=== PATIENT | female | born 1980 | race Caucasian/White ===

== ENCOUNTER 2016-07-05 18:52 | Emergency (ER) | payer SELFPAY ==
[~2016-07-05] VITALS: Ht 167.6 cm; Wt 86.0 kg
[~2016-07-05 18:52] MED LIST: ALPR0.5T99 PO; AMIT10 PO; ASAC800T PO; DICY1TAB26 PO; HYDR-3535 PO; PANT20 PO; PRED20 PO; SEASONIQUE
[2016-07-05 19:03] VITALS: BP 133/90; PULSE 104; RESP 17; TEMP 99.5; O2SAT 98
[2016-07-05] MEDS ORDERED: ASAC800T PO (19:42)
[2016-07-05] MEDS ORDERED: PANT20 PO (19:42)
[2016-07-05] MEDS ORDERED: AMIT1TAB79 PO (19:42)
[2016-07-05] MEDS ORDERED: HYDR-3535 PO (19:42)
[2016-07-05] MEDS ORDERED: ALPR.5 PO (19:42)
[2016-07-05] MEDS ORDERED: SODIUM CHLOR 0.9% 1000 ML INJ 1,000 ML IV SCH ×2 (19:44→22:15)
--- NOTE | 2016-07-05 19:44 | PD ---
HPI Chief Complaint: Abdominal Pain Time Seen by Provider: 19:34 Travel History International Travel<30 days: No Contact w/Intl Traveler<30days: No Traveled to known affect area: No History of Present Illness HPI The patient is a 35-year-old female with a history of Crohn's disease who complains of nausea, vomiting, diarrhea, bright red blood in her stool and fever for 5 days. She has pain on the left upper and lower quadrants, primarily in the left upper quadrant. She states this is her typical exacerbation of Crohn's disease for which she usually gets fluids, Dilaudid and Zofran. Dr. Alexander is currently her health services manager and Dr. Keturah Lambert is her primary care physician. PFSH Past Medical History Anemia: Yes Blood Disorders: No Anxiety: Yes Cancer: No Cardiovascular Problems: Yes Endocrine: No Gastrointestinal Disorders: Yes (CROHN'S DISEASE) GERD: Yes Genitourinary: No Immune Disorder: No Implanted Vascular Access Dvce: No Neurologic: No Psychiatric: No Respiratory: No Immunizations Current: Yes ?: Not LMP: ON [place] DOES NOT GET THEM : 0 Para: 0 Miscarriage: 0 : 0 Past Surgical History Abdominal Surgery: Yes (cholecystectomy) Cholecystectomy: Yes (05/2010) Social History Alcohol Use: No Tobacco Use: No Substance Use: No Allergies-Medications (Allergen,Severity, Reaction): Coded Allergies: Sulfa (Verified Allergy, Severe, THROAT SWELLS, 07/05/16) Reported Meds & Prescriptions Reported Meds & Active Scripts Active Reported Lortab (Hydrocodone-Acetaminophen) 10-325 Mg Tab 1 Tab PO Q6H PRN Protonix (Pantoprazole Sodium) 20 Mg Tab 20 Mg PO DAILY Asacol HD (Mesalamine) 800 Mg Tab 800 Mg PO TID Swallow whole. Take on an empty stomach. Elavil (Amitriptyline HCl) 25 Mg Tab 10 Mg PO HS Xanax (Alprazolam) 0.5 Mg Tab 0.5 Mg PO Q8H PRN [seasonique] control Review of Systems Except as stated in HPI: all other systems reviewed are Neg Physical Exam Narrative GENERAL: The patient appears moderately dehydrated in moderate apparent distress with her abdominal discomfort. Her vital signs show blood pressure 133 /90 with heart rate of 104 but otherwise normal. The temperature is 99.5. SKIN: Warm and dry. HEAD: Atraumatic. Normocephalic. EYES: Pupils equal and round. No scleral icterus. No injection or drainage. ENT: No nasal bleeding or discharge. Mucous membranes pink and moist. NECK: Trachea midline. No JVD. CARDIOVASCULAR: Regular rate and rhythm. No murmur appreciated. RESPIRATORY: No accessory muscle use. Clear to auscultation. Breath sounds equal bilaterally. GASTROINTESTINAL: Abdomen soft, with tenderness in the left upper and left middle quadrant to direct palpation, nondistended. Hepatic and splenic margins not palpable. No guarding or rebound is present. MUSCULOSKELETAL: No obvious deformities. No clubbing. No cyanosis. No edema. NEUROLOGICAL: Awake and alert. No obvious cranial nerve deficits. Motor grossly within normal limits. Normal speech. PSYCHIATRIC: Appropriate mood and affect; insight and judgment normal. RECTAL EXAM: Only a small amount of mucousy material was recovered from the rectum and this was quite negative. Data Data Last Documented VS Vital Signs Date Time Temp Pulse Resp B/P Pulse Ox O2 Delivery O2 Flow Rate FiO2 07/05/16 21:38 91 18 114/64 99 Room Air 07/05/16 19:03 99.5 Orders Complete Blood Count With Diff (07/05/16 19:44) Comprehensive Metabolic Panel (07/05/16 19:44) Lipase (07/05/16 19:44) Urinalysis - C+S If Indicated (07/05/16 19:44) Iv Access Insert/Monitor (07/05/16 19:44) Ecg Monitoring (07/05/16 19:44) Oximetry (07/05/16 19:44) Ondansetron Inj (Zofran Inj) (07/05/16 19:45) Sodium Chlor 0.9% 1000 Ml Inj (Ns 1000 M (07/05/16 19:44) Sodium Chloride 0.9% Flush (Ns Flush) (07/05/16 19:45) Hydromorphone Pf Inj (Dilaudid Pf Inj) (07/05/16 19:45) Ct Abd/Pel W Iv Contrast(Rout) (07/05/16 20:18) Hydromorphone Pf Inj (Dilaudid Pf Inj) (07/05/16 21:15) Ondansetron Inj (Zofran Inj) (07/05/16 21:15) Iohexol 350 Inj (Omnipaque 350 Inj) (07/05/16 21:40) Ondansetron Inj (Zofran Inj) (07/05/16 22:15) Hydromorphone Pf Inj (Dilaudid Pf Inj) (07/05/16 22:15) Labs Laboratory Tests Test 07/05/16 19:55 White Blood Count 12.1 TH/MM3 Red Blood Count 4.59 MIL/MM3 Hemoglobin 12.6 GM/DL Hematocrit 37.5 % Mean Corpuscular Volume 81.6 FL Mean Corpuscular Hemoglobin 27.3 PG Mean Corpuscular Hemoglobin 33.5 % Concent Red Cell Distribution Width 15.4 % Platelet Count 489 TH/MM3 Mean Platelet Volume 9.1 FL Neutrophils (%) (Auto) 70.5 % Lymphocytes (%) (Auto) 24.2 % Monocytes (%) (Auto) 2.7 % Eosinophils (%) (Auto) 0.7 % Basophils (%) (Auto) 1.9 % Neutrophils # (Auto) 8.6 TH/MM3 Lymphocytes # (Auto) 2.9 TH/MM3 Monocytes # (Auto) 0.3 TH/MM3 Eosinophils # (Auto) 0.1 TH/MM3 Basophils # (Auto) 0.2 TH/MM3 CBC Comment DIFF FINAL Differential Comment Sodium Level 140 MEQ/L Potassium Level 3.8 MEQ/L Chloride Level 107 MEQ/L Carbon Dioxide Level 22.6 MEQ/L Anion Gap 10 MEQ/L Blood Urea Nitrogen 19 MG/DL Creatinine 0.81 MG/DL Estimat Glomerular Filtration 80 ML/MIN Rate Random Glucose 81 MG/DL Calcium Level 9.2 MG/DL Total Bilirubin 0.4 MG/DL Aspartate Amino Transf 11 U/L (AST/SGOT) Alanine Aminotransferase 13 U/L (ALT/SGPT) Alkaline Phosphatase 86 U/L Total Protein 8.2 GM/DL Albumin 3.8 GM/DL Lipase 128 U/L MDM Medical Decision Making Medical Screen Exam Complete: Yes Emergency Medical Condition: Yes Medical Record Reviewed: Yes Interpretation(s) The CT abdomen/pelvis shows a probable bone island in the left ischium which was present on a 2009 study and is otherwise unremarkable. The CBC shows a white count of 12,100 with a platelet count of ordered and 89,000 but is otherwise normal. The complete metabolic profile shows a BUN of 19 and GFR of 80 but is otherwise normal. Lipase is normal. Differential Diagnosis Acute exacerbation of Crohn's disease, viral gastroenteritis, bacterial enteritis, colitis Narrative Course The patient appears to have a mild exacerbation of Crohn's disease. She was offered admission but she declines, she wants to try it at home. The blood work is rather unremarkable as is the CT abdomen/pelvis. The patient also has evidence clinically and by laboratory, BUN elevation, of mild dehydration. She has not been given 2 L of saline. Plan: The patient will be given Zofran to take at home, 8 mg 3 times daily. Diagnosis Primary Impression: Exacerbation of Crohn's disease Additional Impression: Mild dehydration Additional Instructions: Take the Zofran regularly so that she can hydrate herself. There is evidence both clinically and by laboratory that you are dehydrated. Med/Other Pt SpecificInfo: Prescription(s) given Scripts Ondansetron (Zofran)8 Mg Tab8 Mg PO TID #30 TAB Ref 0 Prov:Bruno Cowan MD 07/05/16 Disposition: 01 DISCHARGE HOME Condition: Stable Bruno Cowan MD Jul 05, 2016 19:44
[2016-07-05] MEDS ORDERED: SODIUM CHLORIDE 0.9% FLUSH 5 ML FLUSH IVF PRN (19:45)
[2016-07-05] MEDS ORDERED: ONDANSETRON HCL 4 MG/2 ML VIAL IVP ONE (19:45)
[2016-07-05] MEDS ORDERED: HYDROmorphone HCL PF 1 MG/ML VIAL IVS ONE (19:45)
[2016-07-05 20:00] VITALS: RESP 18; O2SAT 97
[2016-07-05 20:10] LABS: AUTOMATED NEUTROPHIL # 8.6 TH/MM3 (1.8-7.7); BASOPHIL # 0.2 TH/MM3 (0-0.2); BASOPHIL % 1.9 % (0.0-2.0); EOSINOPHIL # 0.1 TH/MM3 (0-0.4); EOSINOPHIL % 0.7 % (0.0-4.0); HEMATOCRIT 37.5 % (35.0-46.0); HEMO FLAGS DIFF FINAL; LYMPH % 24.2 % (9.0-44.0); LYMPHOCYTE # 2.9 TH/MM3 (1.0-4.8); MEAN CELL VOLUME 81.6 FL (80.0-100.0); MEAN CORPUSCULAR HEMOGLOBIN 27.3 PG (27.0-34.0); MEAN CORPUSCULAR HGB CONC 33.5 % (32.0-36.0); MONO % 2.7 % (0.0-8.0); NEUT % 70.5 % (16.0-70.0); PLATELET COUNT 489 TH/MM3 (150-450); RED BLOOD COUNT 4.59 MIL/MM3 (4.00-5.30); RED CELL DISTRIBUTION WIDTH 15.4 % (11.6-17.2); WHITE BLOOD COUNT 12.1 TH/MM3 (4.0-11.0)
[2016-07-05 20:18] LABS: CHLORIDE 107 MEQ/L (98-107); POTASSIUM 3.8 MEQ/L (3.5-5.1); SODIUM (NA) 140 MEQ/L (136-145)
[2016-07-05 20:22] LABS: ANION GAP 10 MEQ/L (5-15); BICARBONATE 22.6 MEQ/L (21.0-32.0); BLOOD UREA NITROGEN 19 MG/DL (7-18)
[2016-07-05 20:25] LABS: ALT (GPT) 13 U/L (10-53); AST (GOT) 11 U/L (15-37); GLOMERULAR FILTRATION RATE 80 ML/MIN (>89)
[2016-07-05 20:26] LABS: TOTAL BILIRUBIN ADULT 0.4 MG/DL (0.2-1.0)
[2016-07-05 20:28] LABS: ALKALINE PHOSPHATASE 86 U/L (45-117)
[2016-07-05] MEDS ORDERED: ONDANSETRON HCL 4 MG/2 ML VIAL IV ONE ×2 (21:15→22:15)
[2016-07-05] MEDS ORDERED: HYDROmorphone HCL PF 1 MG/ML VIAL IVP ONE ×2 (21:15→22:15)
--- NOTE | 2016-07-05 21:20 | RADHPO ---
EXAM DATE/TIME: 07/05/2016 20:46 [facility] COMPARISON: CT ABDOMEN & PELVIS W CONTRAST, February 03, 2016, 23:26. INDICATIONS : Left sided abdominal pain with nausea, vomiting, and diarrhia for five days. IV CONTRAST: 97 cc Omnipaque 350 (iohexol) IV ORAL CONTRAST: No oral contrast ingested. RADIATION DOSE: 27.62 CTDIvol (mGy) MEDICAL HISTORY : Crohn's disease. Gastroesophageal reflux disease. SURGICAL HISTORY : Cholecystectomy. ENCOUNTER: Initial ACUITY: 4 - 6 days PAIN SCALE: 6/10 LOCATION: Left Abdomen. TECHNIQUE: Volumetric scanning of the abdomen and pelvis was performed. Using automated exposure control and ad justment of the mA and/or kV according to patient size, radiation dose was kept as low as reasonably achievable to obtain optimal diagnostic quality images. FINDINGS: CT Abdomen: The liver, spleen, pancreas, kidneys, adrenals are unremarkable. There is no evidence for any appreciable pathological adenopathy, free fluid, or bowel obstruction. There is evidence for ananda or cholecystectomy. CT pelvis: There is no evidence for mass, abscess formation, or any significant adenopathy within the pelvis. The appendix is not clearly visualized, however no definite signs of appendicitis is seen. A pproximate 1.8 cm sclerotic lesion of the left ischium is again seen and described on the prior study from 2009 and that exam is not available for direct comparison and is archived. This is probably a l arge bone island. CONCLUSION: Probable island in the left ischium described on the prior study from 2009 and otherw ise unremarkable. Martin Mendez MD on July 05, 2016 at 21:12 Board Certified Radiologist. This report was verified electronically.
[2016-07-05 21:38] VITALS: BP 114/64; PULSE 91; RESP 18; O2SAT 99
[2016-07-05] MEDS ORDERED: IOHEXOL 350 MG/ML 10 ML VIAL (for RAD DIAG) IV ONE (21:40)
[2016-07-05] MEDS ORDERED: ZOFR8TAB PO (22:09)
[2016-07-05 23:10] VITALS: BP 112/66; PULSE 78; RESP 18; O2SAT 98
== END 2016-07-05 23:48 | disposition home or self-care (01) ==
LOC: PHED 18:52
DX: K50.911 Crohn's disease, unspecified, with rectal bleeding (principal); K50.918 Crohn's disease, unspecified, with other complication; E86.0 Dehydration
CPT/HCPCS: 74177; 80053; 83690; 85025; 96361; 96374; 96375; 96376; 99285; J1170; J2405; J7030; Q9967

== ENCOUNTER 2017-03-15 20:49 | Inpatient (IN) | payer SELFPAY ==
[~2017-03-15] VITALS: Ht 167.6 cm; Wt 95.6 kg
[~2017-03-15 20:49] MED LIST changes: +ALPR.5 PO; -ALPR0.5T99 PO; -AMIT10 PO; +AMIT1TAB79 PO; -DICY1TAB26 PO; -PRED20 PO; +ZOFR8TAB PO
[2017-03-15 21:07] VITALS: BP 196/77; PULSE 107; RESP 20; TEMP 98.6; O2SAT 98
[2017-03-15] MEDS ORDERED: FLUO-1 PO (21:25)
[2017-03-15] MEDS ORDERED: METH10003 (21:25)
[2017-03-15] MEDS ORDERED: SODIUM CHLOR 0.9% 1000 ML INJ 1,000 ML IV SCH ×2 (21:30→21:45)
[2017-03-15] MEDS ORDERED: SODIUM CHLORIDE 0.9% FLUSH 10 ML FLUSH IV FLUSH PRN ×2 (21:30→23:30)
[2017-03-15] MEDS ORDERED: ONDANSETRON HCL 4 MG/2 ML VIAL IVP ONE ×2 (21:30→23:00)
[2017-03-15] MEDS ORDERED: HYDROmorphone HCL PF 1 MG/ML VIAL IVS ONE ×2 (21:30→23:00)
--- NOTE | 2017-03-15 21:36 | PD ---
HPI Chief Complaint: Abdominal Pain Time Seen by Provider: 21:21 Travel History International Travel<30 days: No Contact w/Intl Traveler<30days: No Traveled to known affect area: No History of Present Illness HPI The patient is a 36-year-old female with a history of Crohn's disease who complains of left-sided abdominal pain for 2 weeks. She has nausea and vomiting although there is been no vomiting today. She denies any blood in the stool she does have diarrhea and she states her fever was 101 at home. Her pain is primarily in the left upper and lower quadrants. She has had a cholecystectomy but still has her appendix. 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 She states she cannot be , she takes control pills correctly and is currently on her period. She states her pain as a 10 over 10 in stabbing, sharp pain. Apparently, the patient is used to narcotics and has taken Lortab 10 and chronically. PFSH Past Medical History Anemia: Yes Blood Disorders: No Anxiety: Yes Cancer: No Cardiovascular Problems: Yes Diminished Hearing: No Endocrine: No Gastrointestinal Disorders: Yes (CROHN'S DISEASE) GERD: Yes Genitourinary: No Immune Disorder: No Implanted Vascular Access Dvce: No Medical other: Yes (seizure disorder, chrons disease, thoracic pain) Neurologic: No Psychiatric: No Respiratory: No Immunizations Current: Yes Tetanus Vaccination: Unknown ?: Not LMP: 03/15/17 : 0 Para: 0 Miscarriage: 0 : 0 Past Surgical History Abdominal Surgery: Yes (cholecystectomy) Cholecystectomy: Yes (05/2010) Other Surgery: No Social History Alcohol Use: No Tobacco Use: No Substance Use: No Allergies-Medications (Allergen,Severity, Reaction): Coded Allergies: Sulfa (Sulfonamide Antibiotics) (Unverified Allergy, Severe, THROAT SWELLS , 03/15/17) Reported Meds & Prescriptions Reported Meds & Active Scripts Active Zofran (Ondansetron HCl) 8 Mg Tab 8 Mg PO TID Reported B-12 (Methylcobalamin) 1,000 Mcg Sub Prozac (Fluoxetine HCl) 10 Mg Cap 10 Mg PO DAILY Lortab (Hydrocodone-Acetaminophen) 10-325 Mg Tab 1 Tab PO Q6H PRN [seasonique] control Review of Systems Except as stated in HPI: all other systems reviewed are Neg Physical Exam Narrative GENERAL: The patient is alert, oriented 3 and moderate to severe distress with her abdominal pain. She is anxious and crying. She is extremely anxious. Her vital signs show blood pressure 196/77 with heart rate of 107 but are otherwise normal. She does appear to be mildly dehydrated. SKIN: Focused skin assessment warm/dry. HEAD: Atraumatic. Normocephalic. EYES: Pupils equal and round. No scleral icterus. No injection or drainage. ENT: No nasal bleeding or discharge. Mucous membranes pink and moist. NECK: Trachea midline. No JVD. CARDIOVASCULAR: Regular rate and rhythm. No murmur appreciated. RESPIRATORY: No accessory muscle use. Clear to auscultation. Breath sounds equal bilaterally. GASTROINTESTINAL: Abdomen soft, with tenderness in the left upper and left lower quadrant to direct palpation, nondistended. Hepatic and splenic margins not palpable. No guarding or rebound is present. MUSCULOSKELETAL: No obvious deformities. No clubbing. No cyanosis. No edema. NEUROLOGICAL: Awake and alert. No obvious cranial nerve deficits. Motor grossly within normal limits. Normal speech. PSYCHIATRIC: The patient is extremely anxious; insight and judgment normal. Data Data Last Documented VS Vital Signs Date Time Temp Pulse Resp B/P (MAP) Pulse Ox O2 Delivery O2 Flow Rate FiO2 03/15/17 22:19 98 Room Air 03/15/17 21:07 98.6 107 20 196/77 (116) Orders Orders Complete Blood Count With Diff (03/15/17 21:30) Comprehensive Metabolic Panel (03/15/17 21:30) Lipase (03/15/17 21:30) Urinalysis - C+S If Indicated (03/15/17 21:30) Ct Abd/Pel W Iv Contrast(Rout) (03/15/17 21:30) Iv Access Insert/Monitor (03/15/17 21:30) Ecg Monitoring (03/15/17 21:30) Oximetry (03/15/17 21:30) Ondansetron Inj (Zofran Inj) (03/15/17 21:30) Sodium Chlor 0.9% 1000 Ml Inj (Ns 1000 M (03/15/17 21:30) Sodium Chloride 0.9% Flush (Ns Flush) (03/15/17 21:30) Hydromorphone Pf Inj (Dilaudid Pf Inj) (03/15/17 21:30) Ed Urine Pregnancytest Poc (03/15/17 21:30) Lorazepam Inj (Ativan Inj) (03/15/17 21:45) Sodium Chlor 0.9% 1000 Ml Inj (Ns 1000 M (03/15/17 21:45) Iohexol 350 Inj (Omnipaque 350 Inj) (03/15/17 22:40) Ondansetron Inj (Zofran Inj) (03/15/17 23:00) Hydromorphone Pf Inj (Dilaudid Pf Inj) (03/15/17 23:00) Potassium Chloride (Kcl) (03/15/17 23:00) Labs Laboratory Tests Test 03/15/17 21:45 White Blood Count 9.0 TH/MM3 Red Blood Count 4.03 MIL/MM3 Hemoglobin 11.2 GM/DL Hematocrit 34.3 % Mean Corpuscular Volume 85.2 FL Mean Corpuscular Hemoglobin 27.8 PG Mean Corpuscular Hemoglobin Concent 32.7 % Red Cell Distribution Width 13.9 % Platelet Count 354 TH/MM3 Mean Platelet Volume 9.4 FL Neutrophils (%) (Auto) 51.0 % Lymphocytes (%) (Auto) 39.4 % Monocytes (%) (Auto) 5.5 % Eosinophils (%) (Auto) 3.8 % Basophils (%) (Auto) 0.3 % Neutrophils # (Auto) 4.6 TH/MM3 Lymphocytes # (Auto) 3.6 TH/MM3 Monocytes # (Auto) 0.5 TH/MM3 Eosinophils # (Auto) 0.3 TH/MM3 Basophils # (Auto) 0.0 TH/MM3 CBC Comment DIFF FINAL Differential Comment Blood Urea Nitrogen 15 MG/DL Creatinine 0.86 MG/DL Random Glucose 94 MG/DL Total Protein 7.2 GM/DL Albumin 3.6 GM/DL Calcium Level 8.4 MG/DL Alkaline Phosphatase 105 U/L Aspartate Amino Transf (AST/SGOT) 19 U/L Alanine Aminotransferase (ALT/SGPT) 26 U/L Total Bilirubin 0.3 MG/DL Sodium Level 137 MEQ/L Potassium Level 3.0 MEQ/L Chloride Level 106 MEQ/L Carbon Dioxide Level 23.3 MEQ/L Anion Gap 8 MEQ/L Estimat Glomerular Filtration Rate 74 ML/MIN Lipase 87 U/L [facility] Medical Decision Making Medical Screen Exam Complete: Yes Emergency Medical Condition: Yes Medical Record Reviewed: Yes Interpretation(s) The CBC is normal except for hemoglobin of 11.2 and hematocrit of 34.3. The lipase is normal. The potassium is 3.0 and GFR is 74 with calcium 8.4 but the rest of the complete metabolic profile is normal. The CT abdomen/pelvis with IV contrast shows mild circumferential bowel wall thickening from the mid to distal descending colon characteristic of colitis. The appendix is normal. Differential Diagnosis Acute exacerbation of Crohn's disease, small bowel obstruction, electrolyte disorder, dehydration, renal insufficiency, anemia, pancreatitis, colitis Narrative Course The patient appears to have an acute exacerbation of Crohn's disease. She apparently has a high tolerance for narcotics, she is still in pain and is still nauseated. She cannot go home at this time, she will benefit from IV fluids, pain medications and nausea medications. I discussed the patient with Dr. Espinoza, the patient will be admitted to her here at [facility]. Diagnosis Primary Impression: Exacerbation of Crohn's disease Additional Impressions: Hypokalemia due to loss of potassium Intractable abdominal pain Intractable vomiting with nausea Admitting Information Admitting Physician Requests: it Bruno Cowan MD Mar 15, 2017 21:36
[2017-03-15] MEDS ORDERED: LORazepam 2 MG/ML VIAL IV PUSH ONE (21:45)
[2017-03-15 22:11] LABS: AUTOMATED NEUTROPHIL # 4.6 TH/MM3 (1.8-7.7); BASOPHIL % 0.3 % (0.0-2.0); EOSINOPHIL # 0.3 TH/MM3 (0-0.4); EOSINOPHIL % 3.8 % (0.0-4.0); HEMATOCRIT 34.3 % (35.0-46.0); HEMO FLAGS DIFF FINAL; LYMPH % 39.4 % (9.0-44.0); LYMPHOCYTE # 3.6 TH/MM3 (1.0-4.8); MEAN CELL VOLUME 85.2 FL (80.0-100.0); MEAN CORPUSCULAR HEMOGLOBIN 27.8 PG (27.0-34.0); MEAN CORPUSCULAR HGB CONC 32.7 % (32.0-36.0); MONO % 5.5 % (0.0-8.0); PLATELET COUNT 354 TH/MM3 (150-450); RED BLOOD COUNT 4.03 MIL/MM3 (4.00-5.30); RED CELL DISTRIBUTION WIDTH 13.9 % (11.6-17.2)
[2017-03-15 22:19] VITALS: O2SAT 98
[2017-03-15 22:22] LABS: CHLORIDE 106 MEQ/L (98-107); SODIUM (NA) 137 MEQ/L (136-145)
[2017-03-15 22:25] LABS: ANION GAP 8 MEQ/L (5-15); BICARBONATE 23.3 MEQ/L (21.0-32.0)
[2017-03-15 22:26] LABS: BLOOD UREA NITROGEN 15 MG/DL (7-18)
[2017-03-15 22:28] LABS: ALT (GPT) 26 U/L (10-53); AST (GOT) 19 U/L (15-37)
[2017-03-15 22:29] LABS: GLOMERULAR FILTRATION RATE 74 ML/MIN (>89)
[2017-03-15 22:30] LABS: TOTAL BILIRUBIN ADULT 0.3 MG/DL (0.2-1.0)
[2017-03-15 22:31] LABS: ALKALINE PHOSPHATASE 105 U/L (45-117)
[2017-03-15] MEDS ORDERED: IOHEXOL 350 MG/ML 10 ML VIAL (for RAD DIAG) IVCONTRAST ONE (22:40)
--- NOTE | 2017-03-15 22:57 | RADRPT ---
EXAM DATE/TIME: 03/15/2017 22:35 [facility] COMPARISON: CT ABDOMEN & PELVIS W CONTRAST, July 05, 2016, 20:46. INDICATIONS : Left side abdominal pain for 10 days. History of Crohn's disease. IV CONTRAST: 96 cc Omnipaque 350 (iohexol) IV ORAL CONTRAST: No oral contrast ingested. RADIATION DOSE: 19.52 CTDIvol (mGy) MEDICAL HISTORY : Crohn's disease. Gastroesophageal reflux disease. SURGICAL HISTORY : Cholecystectomy. ENCOUNTER: Initial ACUITY: 2 weeks PAIN SCALE: 10/10 LOCATION: Left lateral abdomen TECHNIQUE: Volumetric scanning of the abdomen and pelvis was performed. Using automated exposure control and ad justment of the mA and/or kV according to patient size, radiation dose was kept as low as reasonably achievable to obtain optimal diagnostic quality images. DICOM format image data is available electro nically for review and comparison. FINDINGS: Lung bases are clear. Osseous structures are intact. The patient is status post cholecystectomy. No p leural or pericardial effusions are seen. Liver, kidneys, spleen, pancreas, adrenal glands, stomach, urinary bladder, uterus unremarkable. There is mild bowel wall thickening noted descending colon. Sma ll bowel loops, terminal ileum and appendix are normal. Stable left ischial bone island. CONCLUSION: 1. Mild circumferential bowel wall thickening noted from the mid to distal descending colon character istic of mild colitis. Tru Newton MD on March 15, 2017 at 22:53 Board Certified Radiologist. This report was verified electronically.
[2017-03-15] MEDS ORDERED: POTASSIUM CHLORIDE 20 MEQ CONTROLLED RELEASE TAB PO ONE (23:00)
[2017-03-15] MEDS: SODIUM CHLOR 0.9% 1000 ML INJ 1,000 ML IV SCH (23:16)
[2017-03-15] MEDS ORDERED: LACTULOSE SYRUP 20 GM/30 ML CUP PO PRN (23:30)
[2017-03-15] MEDS ORDERED: SENNOSIDES 8.6 MG TAB PO PRN (23:30)
[2017-03-15] MEDS ORDERED: ACETAMINOPHEN 325 MG TAB PO PRN (23:30)
[2017-03-15] MEDS ORDERED: MAGNESIUM HYDROXIDE SUSP 30 ML CUP PO PRN (23:30)
[2017-03-15] MEDS ORDERED: BISACODYL 10 MG SUPP RECTAL PRN (23:30)
[2017-03-15 23:59] VITALS: BP 105/63; PULSE 82; RESP 20; TEMP 98; O2SAT 97
[2017-03-16 00:35] LABS: BLOOD, URINE LARGE (NEG); GLUCOSE,URINE NEG (NEG); KETONE, URINE NEG (NEG); NITRITE,URINE NEG (NEG); PH, URINE 6.5 (5.0-8.5)
[2017-03-16 00:50] LABS: URINE COLOR AMBER (YELLW/STRAW)
[2017-03-16 00:51] LABS: COMMENT (UR) CULTURE INDICATED; CULTURE IF INDICATED CULTURE INDICATED
[2017-03-16] MEDS: PIPERACIL-TAZO 4.5 GM PREMIX 100 ML IV SCH ×4 (01:15→18:15)
[2017-03-16] MEDS: MORPHINE SULFATE 4 MG/ML INJ IV PUSH PRN ×5 (03:47→20:29)
[2017-03-16 07:54] LABS: AUTOMATED NEUTROPHIL # 4.3 TH/MM3 (1.8-7.7); BASOPHIL % 0.4 % (0.0-2.0); EOSINOPHIL # 0.5 TH/MM3 (0-0.4); EOSINOPHIL % 6.6 % (0.0-4.0); HEMATOCRIT 32.7 % (35.0-46.0); HEMO FLAGS DIFF FINAL; LYMPH % 36.5 % (9.0-44.0); MEAN CELL VOLUME 84.7 FL (80.0-100.0); MEAN CORPUSCULAR HEMOGLOBIN 27.2 PG (27.0-34.0); MEAN CORPUSCULAR HGB CONC 32.2 % (32.0-36.0); MONO % 4.6 % (0.0-8.0); NEUT % 51.9 % (16.0-70.0); PLATELET COUNT 341 TH/MM3 (150-450); RED BLOOD COUNT 3.87 MIL/MM3 (4.00-5.30); RED CELL DISTRIBUTION WIDTH 13.6 % (11.6-17.2); WHITE BLOOD COUNT 8.3 TH/MM3 (4.0-11.0)
[2017-03-16 08:00] VITALS: BP 119/66; PULSE 75; RESP 18; TEMP 98.2; O2SAT 96
[2017-03-16 08:01] LABS: CHLORIDE 110 MEQ/L (98-107); POTASSIUM 3.2 MEQ/L (3.5-5.1); SODIUM (NA) 139 MEQ/L (136-145)
[2017-03-16 08:14] LABS: ALKALINE PHOSPHATASE 92 U/L (45-117); ALT (GPT) 22 U/L (10-53); ANION GAP 8 MEQ/L (5-15); AST (GOT) 15 U/L (15-37); BICARBONATE 20.6 MEQ/L (21.0-32.0); BLOOD UREA NITROGEN 12 MG/DL (7-18); GLOMERULAR FILTRATION RATE 102 ML/MIN (>89); TOTAL BILIRUBIN ADULT 0.5 MG/DL (0.2-1.0)
[2017-03-16] MEDS: SODIUM CHLORIDE 0.9% FLUSH 10 ML FLUSH IV FLUSH SCH ×2 (08:54→21:00)
[2017-03-16] MEDS: DOCUSATE SODIUM 50 MG/SENNA 8.6 MG TAB PO SCH ×2 (09:00→20:29)
[2017-03-16] MEDS: SODIUM CHLOR 0.9% 1000 ML INJ 1,000 ML IV SCH ×2 (09:28→18:20)
[2017-03-16] MEDS: ONDANSETRON HCL 4 MG/2 ML VIAL IVP PRN ×3 (09:29→21:20)
[2017-03-16] MEDS ORDERED: LORazepam 2 MG/ML VIAL IV PUSH PRN (09:30)
[2017-03-16] MEDS ORDERED: KETOROLAC TROMETHAMINE 60 MG/2 ML (IM) VIAL IM PRN (09:30)
--- NOTE | 2017-03-16 09:33 | HHI.HP ---
[facility] Service [facility] Primary Care Physician Keturah Lambert M.D. Admission Diagnosis exacerbation of Crohn's disease, intractable abdominal pain and vomi Diagnoses: Chief Complaint: Abdominal pain and diarrhea Travel History International Travel<30 Days: No Contact w/Intl Traveler <30 Da: No Traveled to Known Affected Are: No History of Present Illness This patient is a 28-year-old female with a history of Crohn's on no current treatment due to lack of funding. Patient has had at least a week to 10 days of abdominal discomfort with associated watery bowels and abdominal bloating. She's not had any fevers. She has had symptoms for quite some time but has not been able to follow with her airfield services officer. Apparently in her last visit she was supposed*biological therapy with Remicade but was able to follow through. She is increased abdominal bloating and discomfort which she describes as cramping and severe. She has had some relief with IV morphine however still has intermittent pain. Patient's been admitted to the hospital for further evaluation. CT of the abdomen and pelvis does show some colonic wall thickening. Past Family Social History Allergies: Coded Allergies: Sulfa (Sulfonamide Antibiotics) (Unverified Allergy, Severe, THROAT SWELLS , 03/15/17) Physical Exam Vital Signs Vital Signs Date Time Temp Pulse Resp B/P (MAP) Pulse Ox O2 Delivery O2 Flow Rate FiO2 03/16/17 00:08 18 03/15/17 23:59 98.0 82 20 105/63 (77) 97 Room Air 03/15/17 22:35 18 03/15/17 22:19 98 Room Air 03/15/17 21:07 98.6 107 20 196/77 (116) 98 Physical Exam GENERAL: This is a well-nourished, well-developed patient, in no apparent distress. SKIN: No rashes, ecchymoses or lesions. Cool and dry. HEAD: Atraumatic. Normocephalic. No temporal or scalp tenderness. EYES: Pupils equal round and reactive. Extraocular motions intact. No scleral icterus. No injection or drainage. ENT: Nose without bleeding, purulent drainage or septal hematoma. Throat without erythema, tonsillar hypertrophy or exudate. Uvula midline. Airway patent. NECK: Trachea midline. No JVD or lymphadenopathy. Supple, nontender, no meningeal signs. CARDIOVASCULAR: Regular rate and rhythm without murmurs, gallops, or rubs. RESPIRATORY: Clear to auscultation. Breath sounds equal bilaterally. No wheezes , rales, or rhonchi. GASTROINTESTINAL: Abdomen soft, non-tender, mildly distended. No hepato- splenomegaly, or palpable masses. No guarding. MUSCULOSKELETAL: Extremities without clubbing, cyanosis, or edema. No joint tenderness, effusion, or edema noted. No calf tenderness. Negative Homans sign bilaterally. NEUROLOGICAL: Awake and alert. Cranial nerves II through XII intact. Motor and sensory grossly within normal limits. Five out of 5 muscle strength in all muscle groups. Normal speech. Laboratory Laboratory Tests Test 03/15/17 21:45 03/16/17 07:19 White Blood Count 9.0 8.3 Red Blood Count 4.03 3.87 Hemoglobin 11.2 10.5 Hematocrit 34.3 32.7 Mean Corpuscular Volume 85.2 84.7 Mean Corpuscular Hemoglobin 27.8 27.2 Mean Corpuscular Hemoglobin Concent 32.7 32.2 Red Cell Distribution Width 13.9 13.6 Platelet Count 354 341 Mean Platelet Volume 9.4 9.5 Neutrophils (%) (Auto) 51.0 51.9 Lymphocytes (%) (Auto) 39.4 36.5 Monocytes (%) (Auto) 5.5 4.6 Eosinophils (%) (Auto) 3.8 6.6 Basophils (%) (Auto) 0.3 0.4 Neutrophils # (Auto) 4.6 4.3 Lymphocytes # (Auto) 3.6 3.0 Monocytes # (Auto) 0.5 0.4 Eosinophils # (Auto) 0.3 0.5 Basophils # (Auto) 0.0 0.0 CBC Comment DIFF FINAL DIFF FINAL Differential Comment Urine Color ARVIN Urine Turbidity CLEAR Urine pH 6.5 Urine Specific [place] GREATER THAN 1.035 Urine Protein 30 Urine Glucose (UA) NEG Urine Ketones NEG Urine Occult Blood LARGE Urine Nitrite NEG Urine Bilirubin NEG Urine Leukocyte Esterase NEG Urine RBC 50-99 Urine WBC 9-14 Urine Squamous Epithelial Cells 6-8 Microscopic Urinalysis Comment CULTURE INDICATED Blood Urea Nitrogen 15 12 Creatinine 0.86 0.65 Random Glucose 94 89 Total Protein 7.2 6.0 Albumin 3.6 3.0 Calcium Level 8.4 8.1 Alkaline Phosphatase 105 92 Aspartate Amino Transf (AST/SGOT) 19 15 Alanine Aminotransferase (ALT/SGPT) 26 22 Total Bilirubin 0.3 0.5 Sodium Level 137 139 Potassium Level 3.0 3.2 Chloride Level 106 110 Carbon Dioxide Level 23.3 20.6 Anion Gap 8 8 Estimat Glomerular Filtration Rate 74 102 Lipase 87 Date/Time Source Procedure Growth Status 03/15/17 21:45 Urine Clean Catch Urine Culture Pending Received Result Diagram: 03/16/17 0719 03/16/17718 Imaging Last Impressions Abdomen/Pelvis CT 03/15/172129 Signed Impressions: Service Date/Time: Wednesday, March 15, 2017 22:35 - CONCLUSION: 1. Mild circumferential bowel wall thickening noted from the mid to distal descending colon characteristic of mild colitis. MD Ehsan Deleon VTE Risk Assessment Caprini VTE Risk Assessment: Mod/High Risk (score >= 2) Caprini Risk Assessment Model Point Value = 1 Point Value = 2 Point Value = 3 Point Value = 5 Age 41-60 Minor surgery BMI > 25 kg/m2 Swollen legs Varicose veins or History of unexplained or recurrent spontaneous Oral contraceptives or hormone replacement Sepsis (< 1 month) Serious lung disease, including pneumonia (< 1 month) Abnormal pulmonary function Acute myocardial infarction Congestive heart failure (< 1 month) History of inflammatory bowel disease Medical patient at bed rest Age 61-74 Arthroscopic surgery Major open surgery (> 45 min) Laparoscopic surgery (> 45 min) Malignancy Confined to bed (> 72 hours) Immobilizing plaster cast Central venous access Age >= 75 History of VTE Family history of VTE Factor V Leiden Prothrombin [id number] Lupus anticoagulant Anticardiolipin antibodies Elevated serum homocysteine Heparin-induced thrombocytopenia Other congenital or acquired thrombophilia Stroke (< 1 month) Elective arthroplasty Hip, pelvis, or leg fracture Acute spinal cord injury (< 1 month) Prophylaxis Regimen Total Risk Factor Score Risk Level Prophylaxis Regimen 0-1 Low Early ambulation 2 Moderate Order ONE of the following: *Sequential Compression Device (SCD) *Heparin 5000 units SQ BID 3-4 Higher Order ONE of the following medications: *Heparin 5000 units SQ TID *Enoxaparin/Lovenox 40 mg SQ daily (WT < 150 kg, CrCl > 30 mL/min) *Enoxaparin/Lovenox 30 mg SQ daily (WT < 150 kg, CrCl > 10-29 mL/min) *Enoxaparin/Lovenox 30 mg SQ BID (WT < 150 kg, CrCl > 30 mL/min) AND/OR *Sequential Compression Device (SCD) 5 or more Highest Order ONE of the following medications: *Heparin 5000 units SQ TID (Preferred with Epidurals) *Enoxaparin/Lovenox 40 mg SQ daily (WT < 150 kg, CrCl > 30 mL/min) *Enoxaparin/Lovenox 30 mg SQ daily (WT < 150 kg, CrCl > 10-29 mL/min) *Enoxaparin/Lovenox 30 mg SQ BID (WT < 150 kg, CrCl > 30 mL/min) AND *Sequential Compression Device (SCD) Assessment and Plan Problem List: (1) Exacerbation of Crohn's disease ICD Code: K50.90 - Crohn's disease, unspecified, without complications Status: Acute Plan: Continue IV narcotics for pain Clear liquid diet, GI consult Check C. difficile We'll add Toradol plus or minus steroids (2) Anemia ICD Code: D64.9 - Anemia, unspecified Plan: Likely of chronic disease versus iron deficiency, workup in progress (3) Abnormal urinalysis ICD Code: R82.90 - Unspecified abnormal findings in urine Plan: Continue empiric Zosyn and follow cultures Code Status full code Physician Certification 2 Midnight Certification Type: Admission for Inpatient Services Order for Inpatient Services The services are ordered in accordance with Medicare regulations or non- Medicare payer requirements, as applicable. In the case of services not specified as inpatient-only, they are appropriately provided as inpatient services in accordance with the 2-midnight benchmark. Estimated LOS (days): 3 3 days is the estimated time the patient will need to remain in the hospital, assuming treatment plan goals are met and no additional complications. Post-Hospital Plan: Jannette Angelo MD Mar 16, 2017 09:33
[2017-03-16] MEDS: FLUoxetine HCL 10 MG CAP PO SCH (10:25)
[2017-03-16] MEDS: ALPRAZolam 0.5 MG TAB PO PRN ×2 (10:25→20:30)
[2017-03-16] MEDS: KETOROLAC TROMETHAMINE 30 MG/ML (IVP) VIAL IV PUSH PRN ×2 (11:31→18:19)
[2017-03-16 12:00] VITALS: BP 109/69; PULSE 76; RESP 18; TEMP 98.6; O2SAT 97
[2017-03-16 13:03] LABS: TRANSFERRIN IRON PROFILE 272 MG/DL (200-360)
[2017-03-16 16:00] VITALS: BP 112/68; PULSE 74; RESP 18; TEMP 98.8; O2SAT 97
--- NOTE | 2017-03-16 20:11 | MB ---
cc: PATIENCE DURÁN M.D. DATE OF CONSULTATION 03/16/2017 DATE OF [address] Doty REASON FOR CONSULTATION Abdominal pain, exacerbation of Crohn disease. HISTORY OF THE PRESENT ILLNESS Ms. Waldron is a 36-year-old female with history of Crohn disease diagnosed a long time ago came to the emergency room with complaints of increased abdominal pain, diarrhea, bloating and some nausea for the last 10 days. The patient was diagnosed with Crohn disease many years ago. She was on Asacol on and off but she stopped taking it at least 3 or 4 years ago. She did not have a followup with a associate director regulatory affairs for a while due to lack of insurance. She was treated with Colazal, Asacol and prednisone over the years. Apparently she was evaluated and recommended Remicade. She developed fever. At that time was evaluated by infectious disease and cleared for Remicade treatment. Apparently due to her clinical status improvement Remicade was placed on hold and so she never started it. She denies any nausea or vomiting at this time. Abdominal pain is better, has a heating pad on her abdomen which seems to relieve the majority of it. Denies any hematemesis, hematochezia, melena. She does report having joint pains. No eye problems or skin issues. Currently not taking any medications. PAST MEDICAL HISTORY 1. Crohn's disease. 2. Anxiety. 3. Seizure disorder. 4. Thoracic pain. PAST SURGICAL HISTORY 1. She had cholecystectomy. 2. Endoscopy. 3. Colonoscopy. ALLERGIES SULFA. MEDICATIONS Current medications at this time: 1. Prozac. 2. Toradol. 3. Xanax. 4. Morphine. 5. Apresoline. 6. Tazobactam. SOCIAL HISTORY She denies smoking, drinking or drug use. FAMILY HISTORY No family history of colon cancer or any other GI pathology. REVIEW OF SYSTEMS CONSTITUTIONAL: She denies any fever or chills, weight loss or weight gain. ENT: No alteration in baseline hearing or visual acuity. PULMONARY: Denies any chest pain, shortness of breath. GASTROINTESTINAL: As above. GENITOURINARY: Denies dysuria, hematuria. HEMATOLOGIC: No history of anemia or bleeding disorder. SKIN: No alteration in baseline skin lesion. NEUROLOGIC: No history of TIA or CVA kind of symptoms. PHYSICAL EXAMINATION GENERAL: On clinical exam she is sitting comfortably in bed in no acute distress. VITAL SIGNS: Her temperature is 98.6, pulse is 76, respiration 18, blood pressure 109/69, saturation 97%. HEENT: Pupils equal, round, reactive to light and accommodation. NECK: No JVD. No lymphadenopathy. CHEST: Clear to auscultation and percussion. CARDIOVASCULAR: S1-S2. No murmur. ABDOMEN: Obese. Mildly distended. Tender in the lower abdomen. CENTRAL NERVOUS SYSTEM: Awake, alert, oriented x3. No focal signs identified. LABORATORY DATA Her hemoglobin 10.5 was 11.2 upon admission. White count 8.3. Platelets normal. PT/INR normal. Her urine was suggestive of wbc's and rbc's. Stool for C diff was sent, this is pending. IMAGING Abdominal CT scan showed mild circumferential bowel wall thickening noted from the mid to distal descending colon characteristic of mild colitis. The patient had a colonoscopy and endoscopy in 2010 suggestive of nonspecific colitis. Apparently she had a capsule endoscopy as an outpatient with Dr. Alexander prior to this panendoscopy and colonoscopy and she was found to have an ulcer in the small intestine. No report available. IMPRESSION 1. Ms. Waldron is a 36-year-old lady with history of Crohn disease readmitted to the hospital with intractable abdominal pain and diarrhea due to Crohn disease exacerbation. Diarrhea, need to rule out C diff. Stool pending. 2. Abnormal urine, possible urinary tract infection. Urine culture pending., 3. Noncompliance to medications secondary to lack of funding. 4. Anemia most likely secondary to chronic disease. RECOMMENDATIONS Clear liquid diet, advance as tolerated to soft. Continue IV antibiotics and IV steroids. May need upper endoscopy and colonoscopy prior to her discharge. May need to consult with director of casework for funding for her long-term Crohn's medication. MD JEMAL BreenB/AMIRA /5:16 PM /7:48 PM
[2017-03-16 20:17] VITALS: BP 114/78; PULSE 93; RESP 22; TEMP 99.2; O2SAT 100
[2017-03-16] MEDS: methylPREDNISolone SOD SUCC 40 MG/1 ML VIAL IV PUSH SCH (20:30)
[2017-03-16] MEDS ORDERED: ZOLPIDEM TARTRATE 5 MG TAB PO ONE (21:00)
[2017-03-16 22:33] LABS: C. DIFF EPI 027 PRESUMPTIVE NEGATIVE (NEGATIVE)
[2017-03-17] MEDS: PIPERACIL-TAZO 4.5 GM PREMIX 100 ML IV SCH ×4 (00:09→17:43)
[2017-03-17] MEDS: KETOROLAC TROMETHAMINE 30 MG/ML (IVP) VIAL IV PUSH PRN ×4 (00:10→22:16)
[2017-03-17] MEDS: MORPHINE SULFATE 4 MG/ML INJ IV PUSH PRN ×3 (00:10→09:51)
[2017-03-17 00:17] VITALS: BP 108/81; PULSE 89; RESP 22; TEMP 98.6; O2SAT 98
[2017-03-17] MEDS ORDERED: HYDROmorphone HCL PF 1 MG/ML VIAL IV PUSH ONE (01:45)
[2017-03-17] MEDS: ONDANSETRON HCL 4 MG/2 ML VIAL IVP PRN ×2 (05:32→19:56)
[2017-03-17] MEDS: ALPRAZolam 0.5 MG TAB PO PRN ×2 (05:32→15:16)
[2017-03-17] MEDS: SODIUM CHLOR 0.9% 1000 ML INJ 1,000 ML IV SCH ×2 (05:33→15:16)
[2017-03-17 06:27] LABS: AUTOMATED NEUTROPHIL # 5.7 TH/MM3 (1.8-7.7); BASOPHIL % 0.1 % (0.0-2.0); HEMATOCRIT 35.5 % (35.0-46.0); HEMO FLAGS DIFF FINAL; LYMPH % 14.2 % (9.0-44.0); MEAN CELL VOLUME 84.9 FL (80.0-100.0); MEAN CORPUSCULAR HEMOGLOBIN 28.2 PG (27.0-34.0); MEAN CORPUSCULAR HGB CONC 33.2 % (32.0-36.0); MONO % 0.4 % (0.0-8.0); NEUT % 85.3 % (16.0-70.0); PLATELET COUNT 359 TH/MM3 (150-450); RED BLOOD COUNT 4.19 MIL/MM3 (4.00-5.30); RED CELL DISTRIBUTION WIDTH 14.1 % (11.6-17.2); WHITE BLOOD COUNT 6.7 TH/MM3 (4.0-11.0)
[2017-03-17 06:37] LABS: POTASSIUM 3.5 MEQ/L (3.5-5.1)
[2017-03-17] MEDS: FLUoxetine HCL 10 MG CAP PO SCH (09:00)
[2017-03-17] MEDS: SODIUM CHLORIDE 0.9% FLUSH 10 ML FLUSH IV FLUSH SCH ×2 (09:00→20:02)
[2017-03-17] MEDS: DOCUSATE SODIUM 50 MG/SENNA 8.6 MG TAB PO SCH (09:00)
[2017-03-17] MEDS: methylPREDNISolone SOD SUCC 40 MG/1 ML VIAL IV PUSH SCH ×2 (09:02→20:00)
[2017-03-17 09:19] VITALS: BP 101/67; PULSE 86; RESP 19; TEMP 97.6; O2SAT 98
--- NOTE | 2017-03-17 10:35 | HHI.PR ---
Subjective Remarks Patient seen and evaluated in follow-up for Crohn's colitis. Tolerated antibiotics well. Pain poorly controlled and improved somewhat with heating pad and IV Dilaudid given overnight. Pain worse with Colace. Care plan discussed with gastroneurology team Objective Vitals Vital Signs Date Time Temp Pulse Resp B/P (MAP) Pulse Ox O2 Delivery O2 Flow Rate FiO2 03/17/17 09:19 97.6 86 19 101/67 (78) 98 03/17/17 00:17 98.6 89 22 108/81 (90) 98 03/16/17 20:17 99.2 93 22 114/78 (90) 100 03/16/17 16:00 98.8 74 18 112/68 (83) 97 03/16/17 12:00 98.6 76 18 109/69 (82) 97 I/O 03/16/17 03/16/17 03/16/17 03/17/17 03/17/17 03/17/17 07:00 15:00 23:00 07:00 15:00 23:00 Intake Total 2200 ml 768 ml 1491 ml 1195 ml Balance 2200 ml 768 ml 1491 ml 1195 ml Intake Oral 600 ml IV Total 2200 ml 768 ml 891 ml 1195 ml # Voids 3 Result Diagram: 03/17/17 0535 03/17/17 0535 Objective Remarks GENERAL: This is a well-nourished, well-developed patient, in no apparent distress. CARDIOVASCULAR: Regular rate and rhythm without murmurs, gallops, or rubs. RESPIRATORY: Clear to auscultation. Breath sounds equal bilaterally. No wheezes , rales, or rhonchi. GASTROINTESTINAL: Abdomen soft, mildly distended, tender. Normal active bowel sounds MUSCULOSKELETAL: Extremities without clubbing, cyanosis, or edema. NEURO: Alert & Oriented x4 to person, place, time, situation. Moves all ext x4 A/P Problem List: (1) Exacerbation of Crohn's disease ICD Code: K50.90 - Crohn's disease, unspecified, without complications Status: Acute Plan: Continue IV Dilaudid and heating pad IV Zosyn Clear liquid diet, GI consult appreciated Continue IV steroids C. difficile negative (2) Anemia ICD Code: D64.9 - Anemia, unspecified Plan: Resolved (3) Abnormal urinalysis ICD Code: R82.90 - Unspecified abnormal findings in urine Plan: Continue empiric Zosyn and follow cultures Jannette Doty MD Mar 17, 2017 10:35
[2017-03-17] MEDS: HYDROmorphone HCL PF 2 MG/ML VIAL IVS PRN ×3 (11:01→19:57)
[2017-03-17 12:00] VITALS: BP 121/78; PULSE 91; RESP 18; TEMP 98.3; O2SAT 97
[2017-03-17 16:00] VITALS: BP 118/72; PULSE 83; RESP 20; TEMP 98.3; O2SAT 96
[2017-03-17 20:00] VITALS: BP 124/69; PULSE 89; RESP 20; TEMP 98.6; O2SAT 97
--- NOTE | 2017-03-17 20:40 | HHI.GIFU ---
GI Follow-up Note Consult Follow-up Subjective: Patient laying in bed comfortably, has warm blanket on her abdomen.Diarrhea, abdominal pain, nausea .Asking for pain medications .Not ready to have egd/colonoscopy, would like to await another day Objective: PHYSICAL EXAMINATION: Vitals signs stable No fever Vital Signs Date Time Temp Pulse Resp B/P (MAP) Pulse Ox O2 Delivery O2 Flow Rate FiO2 03/17/17 16:54 20 03/17/17 16:16 20 03/17/17 16:00 98.3 83 20 118/72 (87) 96 03/17/17 13:50 20 HEENT: Pupils round and reactive to light; normocephalic; atraumatic; no jaundice. Throat is clear. NECK: Neck is supple, no JVD, no lymphadenopathy. CHEST: Chest is clear to auscultation and percussion. CARDIAC: Regular rate and rhythm with no murmur gallop or rubs. ABDOMEN: Soft,distended,tender; no hepatosplenomegaly; bowel sounds are present in all four quadrants. EXTREMITIES: No clubbing, cyanosis, or edema. SKIN: Normal; no rash; no jaundice. 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 Available Data (labs, X- Rays, Procedues) : Laboratory Tests Test 03/15/17 21:45 03/16/17 07:19 03/16/17 14:10 03/17/17 05:35 White Blood Count 9.0 TH/MM3 8.3 TH/MM3 6.7 TH/MM3 Red Blood Count 4.03 MIL/MM3 3.87 MIL/MM3 4.19 MIL/MM3 Hemoglobin 11.2 GM/DL 10.5 GM/DL 11.8 GM/DL Hematocrit 34.3 % 32.7 % 35.5 % Mean Corpuscular Volume 85.2 FL 84.7 FL 84.9 FL Mean Corpuscular Hemoglobin 27.8 PG 27.2 PG 28.2 PG Mean Corpuscular Hemoglobin Concent 32.7 % 32.2 % 33.2 % Red Cell Distribution Width 13.9 % 13.6 % 14.1 % Platelet Count 354 TH/MM3 341 TH/MM3 359 TH/MM3 Mean Platelet Volume 9.4 FL 9.5 FL 9.7 FL Neutrophils (%) (Auto) 51.0 % 51.9 % 85.3 % Lymphocytes (%) (Auto) 39.4 % 36.5 % 14.2 % Monocytes (%) (Auto) 5.5 % 4.6 % 0.4 % Eosinophils (%) (Auto) 3.8 % 6.6 % 0.0 % Basophils (%) (Auto) 0.3 % 0.4 % 0.1 % Neutrophils # (Auto) 4.6 TH/MM3 4.3 TH/MM3 5.7 TH/MM3 Lymphocytes # (Auto) 3.6 TH/MM3 3.0 TH/MM3 1.0 TH/MM3 Monocytes # (Auto) 0.5 TH/MM3 0.4 TH/MM3 0.0 TH/MM3 Eosinophils # (Auto) 0.3 TH/MM3 0.5 TH/MM3 0.0 TH/MM3 Basophils # (Auto) 0.0 TH/MM3 0.0 TH/MM3 0.0 TH/MM3 CBC Comment DIFF FINAL DIFF FINAL DIFF FINAL Differential Comment Urine Color ARVIN Urine Turbidity CLEAR Urine pH 6.5 Urine Specific [place] GREATER THAN 1.035 Urine Protein 30 mg/dL Urine Glucose (UA) NEG mg/dL Urine Ketones NEG mg/dL Urine Occult Blood LARGE Urine Nitrite NEG Urine Bilirubin NEG Urine Leukocyte Esterase NEG Urine RBC 50-99 /hpf Urine WBC 9-14 /hpf Urine Squamous Epithelial Cells 6-8 /hpf Microscopic Urinalysis Comment CULTURE INDICATED Blood Urea Nitrogen 15 MG/DL 12 MG/DL 5 MG/DL Creatinine 0.86 MG/DL 0.65 MG/DL 0.54 MG/DL Random Glucose 94 MG/DL 89 MG/DL 130 MG/DL Total Protein 7.2 GM/DL 6.0 GM/DL Albumin 3.6 GM/DL 3.0 GM/DL Calcium Level 8.4 MG/DL 8.1 MG/DL 8.1 MG/DL Alkaline Phosphatase 105 U/L 92 U/L Aspartate Amino Transf (AST/SGOT) 19 U/L 15 U/L Alanine Aminotransferase (ALT/SGPT) 26 U/L 22 U/L Total Bilirubin 0.3 MG/DL 0.5 MG/DL Sodium Level 137 MEQ/L 139 MEQ/L 140 MEQ/L Potassium Level 3.0 MEQ/L 3.2 MEQ/L 3.5 MEQ/L Chloride Level 106 MEQ/L 110 MEQ/L 109 MEQ/L Carbon Dioxide Level 23.3 MEQ/L 20.6 MEQ/L 22.0 MEQ/L Anion Gap 8 MEQ/L 8 MEQ/L 9 MEQ/L Estimat Glomerular Filtration Rate 74 ML/MIN 102 ML/MIN 126 ML/MIN Lipase 87 U/L Magnesium Level 1.7 MG/DL Iron Level 53 MCG/DL Total Iron Binding Capacity 381 MCG/DL Percent Iron Saturation 13.9 % Stool C. difficile Toxin (PCR) NEGATIVE Stl C. difficile Toxin Epiderm 027 PRESUMPTIVE NEGATIVE ASSESSMENT/PLAN: abdominal pain, diarrrhea -secondary acute exacerbation of Crohn's disease crohn's disease -noncompliant to medications due to financial issues diarrhea-c.diff negative -slowly improving Recommendations egd/colon in 2 days , once able to tolerate po iv steroids iv fluids supportive care It was a pleasure seeing Lotus Waldron. Thank you for this consult. Entered by: Celine Scott MD Mar 17, 2017 20:40
[2017-03-18] VITALS: BP 139/84; PULSE 66; RESP 20; TEMP 99.1; O2SAT 98
[2017-03-18] MEDS: ALPRAZolam 0.5 MG TAB PO PRN ×3 (00:18→21:02)
[2017-03-18] MEDS: HYDROmorphone HCL PF 2 MG/ML VIAL IVS PRN ×6 (00:19→21:03)
[2017-03-18] MEDS: PIPERACIL-TAZO 4.5 GM PREMIX 100 ML IV SCH ×4 (00:19→18:05)
[2017-03-18] MEDS: ONDANSETRON HCL 4 MG/2 ML VIAL IVP PRN ×3 (04:32→21:03)
[2017-03-18] MEDS: SODIUM CHLOR 0.9% 1000 ML INJ 1,000 ML IV SCH ×2 (06:15→13:59)
--- NOTE | 2017-03-18 06:29 | RADRPT ---
EXAM DATE/TIME: 03/18/2017 06:00 [place] COMPARISON: No previous studies available for comparison. INDICATIONS : Abdominal pain. MEDICAL HISTORY : Crohn's disease. Gastroesophageal reflux disease. SURGICAL HISTORY : Cholecystectomy. ENCOUNTER: Subsequent ACUITY: 2 weeks PAIN SCORE: 5/10 LOCATION: abdomen, all quadrants. FINDINGS: Supine and upright views of the abdomen were performed. The abdominal bowel gas pattern is normal. No air fluid levels are seen. No abnormal masses, calcifications, or organomegaly is seen. The visu alized lower lungs are clear. No evidence of free intraperitoneal gas. The osseous structures are u nremarkable. CONCLUSION: Nonspecific, benign abdomen appearance Gonsalo Valladares MD on March 18, 2017 at 6:27 Board Certified Radiologist. This report was verified electronically.
[2017-03-18] MEDS: KETOROLAC TROMETHAMINE 30 MG/ML (IVP) VIAL IV PUSH PRN ×2 (07:09→15:06)
[2017-03-18 08:00] VITALS: BP 110/73; PULSE 59; RESP 18; TEMP 98.4; O2SAT 98
[2017-03-18] MEDS: methylPREDNISolone SOD SUCC 40 MG/1 ML VIAL IV PUSH SCH ×2 (08:38→21:01)
[2017-03-18] MEDS: FLUoxetine HCL 10 MG CAP PO SCH (08:38)
[2017-03-18] MEDS: SODIUM CHLORIDE 0.9% FLUSH 10 ML FLUSH IV FLUSH SCH ×2 (08:38→21:03)
[2017-03-18 12:00] VITALS: BP 138/70; PULSE 59; RESP 18; TEMP 98.4; O2SAT 98
--- NOTE | 2017-03-18 12:22 | HHI.PR ---
Subjective Remarks Patient seen In follow-up for Crohn's colitis flare. Abdominal discomfort and pain is improved. Patient more ambulatory. She feels the IV Dilaudid worked the best as well as the heating pad Objective Vitals Vital Signs Date Time Temp Pulse Resp B/P (MAP) Pulse Ox O2 Delivery O2 Flow Rate FiO2 03/18/17 08:00 98.4 59 18 110/73 (85) 98 03/18/17 05:03 16 03/18/17 00:00 99.1 66 20 139/84 (102) 98 03/17/17 23:16 18 03/17/17 23:16 18 03/17/17 20:00 98.6 89 20 124/69 (87) 97 03/17/17 16:00 98.3 83 20 118/72 (87) 96 I/O 03/17/17 03/17/17 03/17/17 03/18/17 03/18/17 03/18/17 07:00 15:00 23:00 07:00 15:00 23:00 Intake Total 1195 ml 1020 ml 240 ml Balance 1195 ml 1020 ml 240 ml Intake Oral 240 ml IV Total 1195 ml 1020 ml # Voids 8 # Bowel Movements 4 Result Diagram: 03/17/17 0535 03/17/17 0535 Objective Remarks GENERAL: This is a well-nourished, well-developed patient, in no apparent distress. CARDIOVASCULAR: Regular rate and rhythm without murmurs, gallops, or rubs. RESPIRATORY: Clear to auscultation. Breath sounds equal bilaterally. No wheezes , rales, or rhonchi. GASTROINTESTINAL: Abdomen soft, mildly distended, tender. Normal active bowel sounds MUSCULOSKELETAL: Extremities without clubbing, cyanosis, or edema. NEURO: Alert & Oriented x4 to person, place, time, situation. Moves all ext x4 A/P Problem List: (1) Exacerbation of Crohn's disease ICD Code: K50.90 - Crohn's disease, unspecified, without complications Status: Acute Plan: Continue IV Dilaudid and heating pad IV Zosyn Clear liquid diet, GI consult appreciated, will need endoscopy likely prior to discharge Continue IV steroids C. difficile negative (2) Anemia ICD Code: D64.9 - Anemia, unspecified Plan: Resolved (3) Abnormal urinalysis ICD Code: R82.90 - Unspecified abnormal findings in urine Plan: Continue Zosyn for Escherichia coli on urine cultures Discharge Planning May need endoscopy prior to discharge, will need oral steroids and pain medicine regimen Jannette Doty MD Mar 18, 2017 12:22
[2017-03-18 16:00] VITALS: BP 136/71; PULSE 52; RESP 18; TEMP 98; O2SAT 98
[2017-03-18] MEDS ORDERED: MAGNESIUM CITRATE SOLN 300 ML BTL PO ONE ×2 (18:45→21:00)
[2017-03-18 20:00] VITALS: BP 110/75; PULSE 60; RESP 20; TEMP 97.6; O2SAT 99
[2017-03-19] VITALS: BP 127/78; PULSE 60; RESP 20; TEMP 97.5; O2SAT 98
[2017-03-19] MEDS: KETOROLAC TROMETHAMINE 30 MG/ML (IVP) VIAL IV PUSH PRN ×3 (00:54→11:59)
[2017-03-19] MEDS: HYDROmorphone HCL PF 2 MG/ML VIAL IVS PRN ×3 (01:03→16:21)
[2017-03-19] MEDS: SODIUM CHLOR 0.9% 1000 ML INJ 1,000 ML IV SCH ×2 (01:04→12:04)
[2017-03-19] MEDS: PIPERACIL-TAZO 4.5 GM PREMIX 100 ML IV SCH ×3 (01:04→12:01)
[2017-03-19 08:00] VITALS: BP 149/82; PULSE 46; RESP 18; TEMP 97; O2SAT 98
[2017-03-19] MEDS: ALPRAZolam 0.5 MG TAB PO PRN ×2 (08:27→23:04)
[2017-03-19] MEDS: ONDANSETRON HCL 4 MG/2 ML VIAL IVP PRN ×2 (08:27→23:55)
[2017-03-19] MEDS: FLUoxetine HCL 10 MG CAP PO SCH (08:29)
[2017-03-19] MEDS: PANTOPRAZOLE SOD 40 MG DELAYED RELEASE TAB PO SCH (08:30)
[2017-03-19] MEDS: methylPREDNISolone SOD SUCC 40 MG/1 ML VIAL IV PUSH SCH (08:30)
[2017-03-19] MEDS: SODIUM CHLORIDE 0.9% FLUSH 10 ML FLUSH IV FLUSH SCH ×2 (08:31→21:00)
[2017-03-19 12:00] VITALS: BP 173/85; PULSE 48; RESP 18; TEMP 97.9; O2SAT 97
[2017-03-19] MEDS ORDERED: PROPOFOL 200 MG/20 ML AMP IV ONE (14:22)
--- NOTE | 2017-03-19 14:29 | PD.PROCEDR ---
GI Procedure PROCEDURE PERFORMED Upper endoscopy with biopsy Colonoscopy with biopsy INDICATION FOR PROCEDURE History of Crohn disease Abdominal pain Diarrhea PROCEDURE: The procedure, risks and benefits were discussed with Ms. Waldron and informed consent was obtained. Anesthesia sedated her with Diprivan. She was placed in the left lateral decubitus position. EGD: The Pentax videoscope was introduced through the oropharynx and advanced to the second portion of the duodenum under direct visualization. Retroflexion was performed in the stomach biopsy from the antrum and from the duodenum FINDINGS: Moderate gastritis biopsy from the antrum Duodenitis including the second and third portion of the duodenum biopsy was done Normal EGD otherwise Colonoscopy: The Pentax videoscope was introduced through the rectum and advanced to the terminal ileum which was partially visualized not able to push the scope completely into the duodenum. Retroflexion was performed in the rectum. Colonic prep was fair FINDINGS: No ulcerations seen in the examined portion of the terminal ileum Minimal gastric colitis in the descending colon and sigmoid colon biopsy was done Patient could have gastroenteritis and not Crohn exacerbation ESTIMATED BLOOD LOSS: None SPECIMENS REMOVED: Antrum Descending colon COMPLICATIONS: None IMPRESSION: Possible gastroenteritis Gastritis Duodenitis Possible mild colitis PLAN: Await biopsy results Start clear liquid Continue current care Capsule endoscopy as an outpatient Cassandra Stone MD Mar 19, 2017 14:29
--- NOTE | 2017-03-19 14:31 | HHI.GIFU ---
Subjective Remarks Patient laying in bed, still complaining of abdominal discomfort, some nausea, tolerated prep Objective Vitals I&O Vital Signs Date Time Temp Pulse Resp B/P (MAP) Pulse Ox O2 Delivery O2 Flow Rate FiO2 03/19/17 12:45 98.2 45 16 163/86 (111) 99 03/19/17 12:00 97.9 48 18 173/85 (114) 97 03/19/17 08:00 97.0 46 18 149/82 (104) 98 03/19/17 03:00 16 03/19/17 01:33 16 03/19/17 01:33 16 03/19/17 00:00 97.5 60 20 127/78 (94) 98 03/18/17 20:00 97.6 60 20 110/75 (87) 99 03/18/17 16:00 98.0 52 18 136/71 (92) 98 I/O 03/18/17 03/18/17 03/18/17 03/19/17 03/19/17 03/19/17 07:00 15:00 23:00 07:00 15:00 23:00 Intake Total 1230 ml 700 ml Balance 1230 ml 700 ml Intake Oral 240 ml 0 ml IV Total 990 ml 700 ml # Voids 8 2 # Bowel Movements 4 Laboratory Date/Time Source Procedure Growth Status 03/15/17 21:45 Urine Clean Catch Urine Culture - Final Escherichia Coli Complete Physical Exam HEENT: Pupils round and reactive to light; normocephalic; atraumatic; no jaundice. Throat is clear. NECK: Neck is supple, no JVD, no lymphadenopathy. CHEST: Chest is clear to auscultation and percussion. CARDIAC: Regular rate and rhythm with no murmur gallop or rubs. ABDOMEN: Soft, nondistended, diffuse abdominal tenderness ; no hepatosplenomegaly; bowel sounds are present in all four quadrants. EXTREMITIES: No clubbing, cyanosis, or edema. SKIN: Normal; no rash; no jaundice. QUALITY ASSURANCE ASSISTANT: No focal deficits; alert and oriented times three. Assessment and Plan Plan Patient is 36-year-old with history of Crohn disease no medication at this time , patient came with nausea abdominal pain diarrhea could be Crohn disease exacerbation versus gastroenteritis, she was started on steroids or [place], upper endoscopy and a colonoscopy was done, terminal ileum was partially viewed without deep insertion there was no ulceration seen IMPRESSION: Possible gastroenteritis Gastritis Duodenitis Possible mild colitis PLAN: Await biopsy results Start clear liquid Continue current care Capsule endoscopy as an outpatient Consider antibiotic Cassandra Stone MD Mar 19, 2017 14:31
[2017-03-19] MEDS ORDERED: HYDROmorphone HCL PF 1 MG/ML VIAL ONE (14:57)
[2017-03-19] MEDS ORDERED: METOPROLOL TARTRATE 25 MG TAB PO PRN (15:00)
[2017-03-19] MEDS ORDERED: LACTATED RINGER'S 1000 ML IV PRN (15:00)
[2017-03-19] MEDS ORDERED: INSULIN HUMAN REGULAR 1,000 UNITS/10 ML VIAL SQ PRN (15:00)
[2017-03-19] MEDS ORDERED: SODIUM CHLORID 0.9% 500 ML IV PRN (15:00)
[2017-03-19] MEDS ORDERED: CHLORHEXIDINE GLUCONATE 2 % 1 PACK (2 CLOTHS) TOPICAL PRN (15:00)
[2017-03-19] MEDS ORDERED: POVIDONE IODINE 5% (ANTISEPSIS KIT) 4 APPLICATIONS EACH NARE PRN (15:00)
[2017-03-19 16:00] VITALS: BP 142/86; PULSE 55; RESP 18; TEMP 98; O2SAT 96
[2017-03-19] MEDS ORDERED: DO NOT ADM ANY ANTICOAGULANT DRUGS PRN (16:00)
--- NOTE | 2017-03-19 17:43 | HHI.PR ---
Subjective Remarks No acute reports overnight from nursing staff. Spoke with GI, no strong impression of any signs of Crohn's disease upon scope. Patient herself says she is still hurting. Objective Vital Signs Date Time Temp Pulse Resp B/P (MAP) Pulse Ox O2 Delivery O2 Flow Rate FiO2 03/19/17 15:17 68 18 146/80 (102) 95 03/19/17 14:43 74 20 156/105 (122) 93 03/19/17 14:30 97.6 63 22 147/88 (107) 98 03/19/17 12:45 98.2 45 16 163/86 (111) 99 03/19/17 12:00 97.9 48 18 173/85 (114) 97 03/19/17 08:00 97.0 46 18 149/82 (104) 98 03/19/17 03:00 16 03/19/17 01:33 16 03/19/17 01:33 16 03/19/17 00:00 97.5 60 20 127/78 (94) 98 03/18/17 20:00 97.6 60 20 110/75 (87) 99 I/O 03/18/17 03/18/17 03/18/17 03/19/17 03/19/17 03/19/17 06:59 14:59 22:59 06:59 14:59 22:59 Intake Total 1230 ml 700 ml 800 ml 100 ml Output Total 150 ml 150 ml Balance 1230 ml 700 ml 650 ml -50 ml Intake Oral 240 ml 0 ml IV Total 990 ml 700 ml 200 ml 100 ml Other 600 ml Output Urine Total 150 ml 150 ml # Voids 8 2 1 1 # Bowel Movements 4 Result Diagram: 03/17/17 0535 03/17/1735 Imaging Last Impressions Abdomen X-Ray 03/18/17 06 Signed Impressions: Service Date/Time: Saturday, March 18, 2017 06:00 - CONCLUSION: Nonspecific , benign abdomen appearance Gonsalo Valladares MD Abdomen/Pelvis CT 03/15/172129 Signed Impressions: Service Date/Time: Wednesday, March 15, 2017 22:35 - CONCLUSION: 1. Mild circumferential bowel wall thickening noted from the mid to distal descending colon characteristic of mild colitis. Tru Newton MD Objective Remarks Mild distress secondary to pain Mild to moderate left-sided tenderness to palpation, none on the right, no guarding, nondistended abdomen A/P Assessment and Plan (1) Abd pain Originally suspected to be Crohn's disease, after speaking with GI, suspect more nonspecific gastroenteritis. We'll switch patient from IV to oral pain medications. Stopping steroids and zosyn. Diarrhea - c. diff neg. - heating pad -Clear liquid diet, advance as tolerated, pill endoscopy likely prior to discharge EGD: Moderate gastritis biopsy from the antrum Duodenitis including the second and third portion of the duodenum biopsy was done Normal EGD otherwise Colonoscopy: unremarkable per GI. (2) Abnormal urinalysis ICD Code: R82.90 - Unspecified abnormal findings in urine Plan: Continue Zosyn for Escherichia coli on urine cultures Oziel Nolen MD Mar 19, 2017 17:43
[2017-03-19 20:00] VITALS: BP 146/93; PULSE 63; RESP 22; TEMP 97.4; O2SAT 98
[2017-03-19 22:00] VITALS: BP 176/90; PULSE 57; RESP 18; TEMP 99; O2SAT 99
[2017-03-20] VITALS: BP 176/90; PULSE 57; RESP 18; TEMP 99; O2SAT 99
[2017-03-20] MEDS: SODIUM CHLOR 0.9% 1000 ML INJ 1,000 ML IV SCH (02:49)
[2017-03-20 08:00] VITALS: BP 147/83; PULSE 71; RESP 20; TEMP 98.5; O2SAT 98
[2017-03-20] MEDS: ALPRAZolam 0.5 MG TAB PO PRN (08:44)
[2017-03-20] MEDS: PANTOPRAZOLE SOD 40 MG DELAYED RELEASE TAB PO SCH (08:44)
[2017-03-20] MEDS: FLUoxetine HCL 10 MG CAP PO SCH (08:44)
[2017-03-20] MEDS: SODIUM CHLORIDE 0.9% FLUSH 10 ML FLUSH IV FLUSH SCH (08:45)
[2017-03-20] MEDS: ONDANSETRON HCL 4 MG/2 ML VIAL IVP PRN (08:45)
--- NOTE | 2017-03-20 09:44 | HHI.DCPOC ---
Discharge Care Plan Diagnosis: (1) Intractable vomiting with nausea (2) Gastritis and duodenitis Additional Problems Avoid all nonsteroidal anti-inflammatory drugs including but not limited to aspirin, Aleve, naproxen, and Naprosyn, advil, ibuprofen, Yaneth-Tyler, Goody powders, BC powders. Goals to Promote Your Health * To prevent worsening of your condition and complications * To maintain your health at the optimal level Directions to Meet Your Goals Take your medications as prescribed Follow your dietary instruction Follow activity as directed Keep your appointments as scheduled Take your immunizations and boosters as scheduled If your symptoms worsen call your PCP, if no PCP go to Urgent Care Center or Emergency Room Smoking is Dangerous to Your Health. Avoid second hand smoke Call the 24-hour hour crisis hotline for domestic abuse at Oziel Nolen MD Mar 20, 2017 09:44
[2017-03-20] MEDS ORDERED: DICY10CA12 PO (09:50)
--- NOTE | 2017-03-20 10:03 | HHI.DS ---
Discharge Summary Admission Date Mar 15, 2017 at 23:20 Discharge Date: Mar 20, 2017 Admitting Diagnosis exacerbation of Crohn's disease, intractable abdominal pain and vomi (1) Exacerbation of Crohn's disease ICD Code: K50.90 - Crohn's disease, unspecified, without complications Status: Acute (2) Anemia ICD Code: D64.9 - Anemia, unspecified (3) Abnormal urinalysis ICD Code: R82.90 - Unspecified abnormal findings in urine Procedures EGD Brief History - From Admission This patient is a 28-year-old female with a history of Crohn's on no current treatment due to lack of funding. Patient has had at least a week to 10 days of abdominal discomfort with associated watery bowels and abdominal bloating. She's not had any fevers. 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 Apparently in her last visit she was supposed*biological therapy with Remicade but was able to follow through. She is increased abdominal bloating and discomfort which she describes as cramping and severe. She has had some relief with IV morphine however still has intermittent pain. Patient's been admitted to the hospital for further evaluation. CT of the abdomen and pelvis does show some colonic wall thickening. CBC/BMP: 03/17/17 0535 03/17/17 0535 Significant Findings Laboratory Tests Test 03/19/17 16:36 C-Reactive Protein 0.35 MG/DL (0.00-0.30) PE at Discharge Lying in bed, awake, no acute distress, unlabored breathing Abdomen is soft, mild tenderness to palpation diffusely, nondistended Hospital Course Patient was admitted for abdominal pain. Gastroenterology was consulted, perform EGD and colonoscopy which showed gastroenteritis but no acute crohn's. Patient's pain became tolerable and was transitioned to oral pain medications. She was tolerating by mouth intake and cleared for gastroenterology for discharge. Patient had met maximal benefit from hospitalization and was clinically stable for discharge. 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 Called in to [facility] pharmacy at [phone]. Pt Condition on Discharge: Stable Discharge Disposition: Discharge Home Discharge Time: > 30 minutes Discharge Instructions DIET: Follow Instructions for: High Fiber Diet Activities you can perform: Weight Bearing as Navid Follow up Referrals: Gastroenterology - 2 Weeks PCP Follow-up - 10 Days New Medications: Dicyclomine (Dicyclomine) 10 Mg Cap 10 MG PO TID for Bowel Management, #90 CAP 0 Refills Prednisone (Prednisone) 10 Mg Tab 10 MG PO DIRECTED for crohns, #65 TAB 0 Refills 3 pills daily for 10 days, 2 pills once a day for 10 days, 1 pill daily for 10 days, half pill daily for 10 days Continued Medications: Fluoxetine (Prozac) 10 Mg Cap 10 MG PO DAILY, #30 CAP 0 Refills Hydrocodone-Acetaminophen (Lortab) 10-325 Mg Tab 1 TAB PO Q6H PRN for PAIN, TAB 0 Refills Methylcobalamin (B-12) 1,000 Mcg Sub Ondansetron (Zofran) 8 Mg Tab 8 MG PO TID for Nausea/Vomiting, #30 TAB 0 Refills Oziel Nolen MD Mar 20, 2017 10:03
[2017-03-21] MEDS ORDERED: PRED10 PO (16:36)
== END 2017-03-20 10:47 | disposition home or self-care (01) | DRG 392 ==
LOC: PHED 20:49 → PHEDA 23:20 → PH3B 03-16 00:56
PROVIDERS: ADMIT Hospitalist; ATTEND Hospitalist
PROC: 0DBM8ZX Excision of Descending Colon, Via Natural or Artificial Opening Endoscopic, Diagnostic (ICD-10-PCS; 2017-03-19)
PROC: 0DBN8ZX Excision of Sigmoid Colon, Via Natural or Artificial Opening Endoscopic, Diagnostic (ICD-10-PCS; 2017-03-19)
PROC: 0DB98ZX Excision of Duodenum, Via Natural or Artificial Opening Endoscopic, Diagnostic (ICD-10-PCS; principal; 2017-03-19 13:45)
PROC: 0DB78ZX Excision of Stomach, Pylorus, Via Natural or Artificial Opening Endoscopic, Diagnostic (ICD-10-PCS; 2017-03-19 13:45)
DX: K52.9 Noninfective gastroenteritis and colitis, unspecified (principal); K50.10 Crohn's disease of large intestine without complications; D63.8 Anemia in other chronic diseases classified elsewhere; E87.6 Hypokalemia; K21.9 Gastro-esophageal reflux disease without esophagitis; F41.9 Anxiety disorder, unspecified; K29.70 Gastritis, unspecified, without bleeding; K29.80 Duodenitis without bleeding; R82.90 Unspecified abnormal findings in urine; B96.20 Unspecified Escherichia coli [E. coli] as the cause of diseases classified elsewhere; Z91.120 Patient's intentional underdosing of medication regimen due to financial hardship
CPT/HCPCS: 74020; 74177; 80048; 80053; 81001; 83540; 83550; 83690; 83735; 84703; 85025; 86140; 87077; 87086; 87186; 87493; 88305; 96361; 96374; 96375; J1170; J1885; J2060; J2270; J2405; J2543; J2920; J3010; J7030; J7120; Q9967